=== PATIENT | male | born 1945 | race Caucasian/White ===

== ENCOUNTER → 2021-04-04 | Outpatient (CLI) | payer BC ==
--- NOTE | 2021-04-04 19:15 | P.STRESS ---
- Stress Test Note Stress Test Results/Findings: Exam Performed: NM stress lexiscan cardiolite Exam Date: 04/04/21 Reason for Exam: Short of Breath Height: 6 ft 1 in Weight: 215 kg Protocol: Lexiscan Stage: na Duration of Exercise: na Resting Heart Rate: 57 Resting Blood Pressure: 133/68 Maximum Achieved Heart Rate: 84 Maximum Achieved Blood Pressure: 133/68 85% PMHR: 123 100% PMHR: 145 METS: na Technologist Comment: Stress Test Results/Findings: Normal heart rate and blood pressure response to Lexiscan infusion Normal baseline ECG No ECG evidence for ischemia Nuclear portion will be reported separately
--- NOTE | 2021-04-05 08:12 | NM ---
EXAMINATION TYPE: NM stress lexiscan cardiolite DATE OF EXAM: 04/04/2021 COMPARISON: NONE HISTORY: R06.02 Shortness of Breath TECHNIQUE: After the intravenous administration of 10 mCi Tc 99m Sestamibi - Cardiolite resting SPEC T images acquired 45 minutes post injection. The patient received 0.4mg Lexiscan, 25.6 mCi Tc 99m Sestamibi - Stress images obtained [address] injection FINDINGS: Review of stress and rest SPECT images demonstrates decreased uptake along the inferior wall the left ventricle greater on the rest images than on stress images however. Some decreased uptake along the septum on stress as compared to rest images is noted. Gated analysis shows normal wall motion with an estimated left ventricular ejection fraction of 62 %. 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 Consider echocardiographic correlation for elevated ejection fraction.
== END | disposition home or self-care (01) ==
LOC: RADNMMAIN 08:21
PROVIDERS: ATTEND Family Medicine
DX: R06.02 Shortness of breath (principal)
CPT/HCPCS: 93017; 78452; A9500